=== PATIENT | female | born 1980 | race Caucasian/White ===

== ENCOUNTER 2018-04-17 17:41 | Emergency (ER) | payer OTHER ==
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
[2018-04-17 18:52] LABS: BASOPHIL % 0.3 % (0.0-0.4); Basophil (Absolute #) 0.02 (0-0.4); Eosinophil % 2.3 % (0.00-5.0); Eosinophil (Absolute #) 0.16 (0-0.5); Granulocyte Absolute (ANC) 4.07 (1.4-6.9); Granulocytes % 59.2 % (36.0-66.0); Hematocrit 44.6 % (35-47); Lymphocyte (Absolute #) 2.07 (1.0-4.6); Lymphocytes % 30.1 % (24.0-44.0); Mean Cell Volume 94.3 fl (78-100); Mean Corpuscular Hemoglobin 31.7 pg (26-32); Mean Corpuscular Hgb Concent. 33.6 g/dl (32-36); Mean Platelet Volume 8.7 fl (6-9.5); Monocyte (Absolute #) 0.56 (0.0-1.3); Monocytes % 8.1 % (0.0-12.0); Platelet Count 256 K/mm3 (150-450); Red Blood Count 4.73 M/mm3 (4.1-5.4); Red Cell Distribution Width 12.6 % (11.5-14.0); White Blood Count 6.9 K/mm3 (4.0-10.5)
[2018-04-17 19:12] LABS: BLOOD UREA NITROGEN 8 mg/dL (7-17); CHLORIDE 110 mmol/L (98-107); Calcium 9.5 mg/dL (8.4-10.2); Carbon Dioxide 28 mmol/L (22-30); Creatinine 1 0.95 mg/dL (0.52-1.04); Glucose 105 mg/dL (74-106); Potassium 3.9 mmol/L (3.5-5.1); SODIUM 145 mmol/L (137-145)
[2018-04-17 19:14] LABS: ACETAMINOPHEN < 10 ug/ml (10-30); ETHYL ALCOHOL < 10 mg/dL (0-10); SALICYLATE < 1.0 mg/dL (2-20)
[2018-04-17 20:11] LABS: Amphetamine,Urine NEGATIVE (NEGATIVE); Barbiturate,Urine NEGATIVE (NEGATIVE); Benzodiazepine,Urine NEGATIVE (NEGATIVE); Cocaine,Urine NEGATIVE (NEGATIVE); Methadone,Urine NEGATIVE (NEGATIVE); Opiate,Urine NEGATIVE (NEGATIVE); PCP,Urine NEGATIVE (NEGATIVE); THC,Urine POSITIVE (NEGATIVE)
[2018-04-17 22:38] LABS: Appearance CLEAR (CLEAR); Bilirubin NEGATIVE (NEGATIVE); Blood NEGATIVE Ery/ul (0-5); Glucose NEGATIVE (NEGATIVE); Ketones NEGATIVE (NEGATIVE); Leukocyte Esterase NEGATIVE (NEGATIVE); Nitrite NEGATIVE (NEGATIVE); Ph 7.5 (5-6); Protein,Urine Dip NEGATIVE (Negative); Specific Gravity 1.005 (1.005-1.025); Urobilinogen NORMAL mg/dL (0-1)
[2018-04-17 23:19] VITALS: BP 132/87; PULSE 72; O2SAT 99
== END 2018-04-17 23:42 | disposition home or self-care (01) ==
LOC: ED 17:41
DX: F12.90 Cannabis use, unspecified, uncomplicated (principal)
CPT/HCPCS: 36415; 80048; 80307; 81002; 84703; 85025; 90791; 99284; G0481; Q3014; G0480